=== PATIENT | male | born 1970 | race Two or more races ===

== ENCOUNTER 2018-02-03 20:35 | Emergency (ER) | payer SELFPAY ==
[~2018-02-03] VITALS: Ht 165.1 cm; Wt 72.8 kg
[2018-02-03 20:56] LABS: HEMATOCRIT 47.9 % (38.0-50.0); HEMOGLOBIN 16.2 G/DL (12.5-16.6); MCH 29.6 PG (29.0-34.0); MCHC 33.8 G/DL (30.0-36.0); MCV 87.6 FL (86-99); PLATELET COUNT 276 K/uL (156-360); RBC DIS.WIDTH-SD 38.5 % (39-53); RED BLOOD COUNT 5.47 M/uL (4.00-5.50)
[2018-02-03 21:05] LABS: CHLORIDE 100 mEq/L (99-109); POTASSIUM 4.3 mEq/L (3.7-5.4); SODIUM 138 mEq/L (136-147)
[2018-02-03 21:07] LABS: GLUCOSE 97 mg/dL (70-99)
[2018-02-03 21:11] LABS: CREATININE 0.9 mg/dL (0.6-1.3); UREA NITROGEN (BUN) 15 mg/dL (9-23)
[2018-02-03 21:17] LABS: TROP-I INTERPRETATION NEGATIVE; TROPONIN-I < 0.01 ng/mL (0.0-0.30)
[2018-02-03 21:27] LABS: GFR ESTIMATE (CALCULATED) > 59 mL/min/ (58.99-99999)
[2018-02-03 22:04] LABS: D-DIMER ELISA < 150.00 ng/mLDDU (<230)
[2018-02-04 00:09] LABS: TROP-I INTERPRETATION NEGATIVE; TROPONIN-I < 0.01 ng/mL (0.0-0.30)
[2018-02-04 00:51] VITALS: BP 104/66
== END 2018-02-04 00:52 | disposition home or self-care (01) ==
LOC: EME 20:35
PROVIDERS: Physician Assistant
DX: R07.89 Other chest pain (principal)
CPT/HCPCS: 71046; 80048; 84484; 85027; 85379; 93005; 99281; 99285